=== PATIENT | male | born 1990 | race Caucasian/White ===

== ENCOUNTER 2020-02-29 15:07 | Emergency (ER) | payer SELFPAY ==
[~2020-02-29 15:07] MED LIST: CIPRO500 M1 PO; FLOMAX 0.40.4 MG/CAP PO; NAPROXEN220 MG PO; NORCO 325 MG-51 TAB PO
[2020-02-29] MEDS ORDERED: MULTI-VITAMIN1 EACH PO (15:28)
[2020-02-29 15:47] LABS: EOS # 0.1 (0.04-0.40); EOS % 0.8 % (0.0-4.0); HEMATOCRIT 46.1 % (42.0-52.0); HEMOGLOBIN 15.9 g/dL (13.5-18.0); LYMPH# 1.2 (1.50-4.00); MEAN CELL VOLUME 90 fl (78-100); MEAN CORPUSCULAR HEMOGLOBIN 31 pg (27-31); MEAN CORPUSCULAR HGB CONC 35 g/dL (33-37); MEAN PLATELET VOLUME 10.7 fl (7.4-10.4); MONO # 0.6 (0.20-0.80); NEU # 7.8 (1.40-6.50); PLATELET COUNT 197 K/mm3 (130-400); RED BLOOD COUNT 5.15 M/mm3 (4.20-5.60); RED CELL DISTRIBUTION WIDTH 12.3 % (11.5-14.5); WHITE BLOOD COUNT 9.7 K/mm3 (4.8-10.8)
[2020-02-29 15:52] LABS: ALBUMIN 4.6 g/dL (3.5-5.0); POTASSIUM 3.6 mmol/L (3.5-5.1)
[2020-02-29 15:53] LABS: CALCIUM 9.6 mg/dL (8.3-10.5)
[2020-02-29 15:56] LABS: TOTAL BILIRUBIN 0.6 mg/dL (0.2-1.2)
[2020-02-29 17:20] LABS: PH-URINE 6.5 (5.0 - 8.0); URINE APPEARANCE CLEAR; URINE BILIRUBIN NEGATIVE (NEGATIVE); URINE BLOOD 250 ery/uL (NEGATIVE); URINE COLOR YELLOW; URINE GLUCOSE NEGATIVE (NEGATIVE); URINE KETONE SMALL (NEGATIVE); URINE LEUKOCYTE ESTERASE NEGATIVE (NEGATIVE); URINE NITRATE NEGATIVE (NEGATIVE); URINE PROTEIN(semi-quant) TRACE mg/dL (NEGATIVE); URINE UROBILINOGEN NORMAL (NORMAL)
[2020-02-29] MEDS ORDERED: PERCOCET 325 MG1 TA2 PO (17:54)
[2020-02-29] MEDS ORDERED: ZOFRAN ODT4 MG PO (17:54)
[2020-02-29 18:16] VITALS: BP 149/75
== END 2020-02-29 18:28 | disposition home or self-care (01) ==
LOC: ED 15:07
PROVIDERS: Family Medicine
DX: N20.1 Calculus of ureter (principal); G12.21 Amyotrophic lateral sclerosis
CPT/HCPCS: J7030